=== PATIENT | male | born 1990 | race Caucasian/White ===

== ENCOUNTER 2024-05-25 09:01 | Emergency (ER) | payer SELFPAY ==
[2024-05-25 09:06] VITALS: BP 155/103; PULSE 70; TEMP 37.1; O2SAT 100; BMI 34.6
--- NOTE | 2024-05-25 09:35 | XR_ITS ---
The [address] [address] Patient Name: ESTEPHANIA FARAH MRN: [id number] date: 1990 Sex: M Assigned Patient Location: ER Current Patient Location: ER Accession/Order Number: [id number] Exam Date: 05/25/2024 09:57 Report Date: 05/25/2024 10:50 At the request of: ELYSE FULTON Procedure: XR acute abdomen series EXAMINATION: XR acute abdomen series HISTORY: Vomiting blood , epigastric pain COMPARISON: No relevant comparison available. FINDINGS: LUNGS: Trace amount of atelectasis or infiltrates within lingula. MEDIASTINUM: No abnormal widening. BOWEL GAS PATTERN: Non-obstructed. No abnormal dilation or suspicious fluid levels. FREE AIR: None. CALCIFICATIONS: None significant. BONES: No fracture or visible bone lesion. OTHER: Negative. XR/XR acute abdomen series IMPRESSION: 1. Trace amount lingular infiltrates versus atelectasis. 2. Normal bowel gas pattern. No acute abdomen or pelvis findings. Electronically authenticated by: MIGUELANGEL BATRES Date: 05/25/2024 10:50
--- NOTE | 2024-05-25 09:36 | PC.NURSE ---
pt states he lost his mother last week. Has had abd pain and intractable vomiting since tuesday. states he feels very anxious. does have a h/o stomach ulcers. denies any suicidal or homicidal thoughts. admits to smoking weed as well
--- NOTE | 2024-05-25 09:36 | ED.GENADUL1 ---
HPI HPI - General Adult General Chief complaint: Abdominal Pain Stated complaint: ANXIETY/ VOMITTING Time Seen by Provider: 05/25/24 09:35 Source: patient and family Mode of arrival: walk-in Limitations: no limitations History of Present Illness HPI narrative: This patient is here complaining of protracted vomiting since Tuesday of this week. He noticed blood in the vomitus once but for the most part there is no blood there. Prior to these episodes he had extreme constipation and started noticing blood in the stool. Somewhat of a limited historian, but he states when he was 20 years old he was admitted to a hospital in [place] and was told that he had ulcers. He does not remember if they did upper or lower colonoscopies or upper endoscopy. He was placed on some Prilosec at that time and his fianc?e started giving him that just last couple days. He denies any alcohol intake. He smokes marijuana. He has no history of hepatitis pancreatitis or colitis that he is aware of. He does not have a family doctor in the area or any other medical care options. Related Data Home Medications ?Medication ?Instructions ?Recorded ?Confirmed ondansetron HCl 4 mg tablet 4 mg PO Q8H 05/25/24 05/25/24 Allergies Allergy/AdvReac Type Severity Reaction Status Date / Time No Known Drug Allergies Allergy Verified 05/25/24 09:10 Opioid HPI Opioid Management Most Recent Opioid Data: No Data to Display Exam Narrative Exam Narrative: Awake alert moderately anxious. States that his mother is in hospice care and is very upset with that. Semination of abdomen there is no guarding rebound rigidity or peritoneal findings. Bowel sounds are normal. There is no umbilical herniation. There is no pulsatile masses. Liver is not enlarged. There is no splenomegaly. Heart and lung examination were normal. His color is good there is no scleral icterus or pallor or evidence of anemia. Constitutional Vital Signs, click to edit/add: Last Vital Signs Temp 98.7 F 05/25/24 09:06 Pulse 70 05/25/24 09:06 Resp 20 05/25/24 09:06 BP 149/91 H 05/25/24 11:16 Pulse Ox 100 05/25/24 09:06 O2 Del Method Room Air 05/25/24 09:06 Course Vital Signs Vital signs: Vital Signs Temperature 98.7 F 05/25/24 09:06 Pulse Rate 70 05/25/24 09:06 Respiratory Rate 20 05/25/24 09:06 Blood Pressure 155/103 H 05/25/24 09:06 Pulse Oximetry 100 05/25/24 09:06 Oxygen Delivery Method Room Air 05/25/24 09:06 Temperature 98.7 F 05/25/24 09:06 Pulse Rate 70 05/25/24 09:06 Respiratory Rate 20 05/25/24 09:06 Blood Pressure 149/91 H 05/25/24 11:16 Pulse Oximetry 100 05/25/24 09:06 Oxygen Delivery Method Room Air 05/25/24 09:06 Medical Decision Making MDM Narrative Medical decision making narrative: Laboratory findings show no indication of pancreatitis anemia or hepatitis. He is a relatively frequent user of marijuana and I believe is most likely diagnosis is cyclic vomiting. Kidney function tests are normal. He was given IV fluids. He did not have any response to Zofran so he was then given some Haldol. He subsequently had a little bit nervous feeling after that so of giving him Benadryl but he did not show any indication of acute tar dive motor dysfunction. We had an extensive discussion about the fact that I believe he needs to strongly consider, reconsider any marijuana use. I do not believe he is at risk for harming himself. I strongly considered a follow-up with mental health professional for any residual anxiety disorders or grief reactions. His female utilization review coordinator is supportive of these recommendations. Lab Data Labs: Lab Results 05/25/24 05/25/24 Range/Units 09:10 10:17 WBC 8.0 (4.0-11.0) 10^3/uL RBC 5.98 (4.70-6.10) 10^6/uL Hgb 15.8 (14.0-18.0) g/dL Hct 46.9 (42.0-54.0) % MCV 78.4 L (80.0-94.0) fL MCH 26.4 (25.9-34.0) pg MCHC 33.7 (29.9-35.2) g/dL RDW 14.1 (11.0-15.0) % Plt Count 323 (150-450) 10^3/uL MPV 11.4 (9.5-13.5) fL Neut % (Auto) 57.3 (43.0-75.0) % Lymph % (Auto) 33.3 (20.5-60.0) % [place] % (Auto) 6.3 (1.7-12.0) % Eos % (Auto) 2.2 (0.9-7.0) % Baso % (Auto) 0.5 (0.2-2.0) % Neut # (Auto) 4.6 (1.4-6.5) 10^3/uL Lymph # (Auto) 2.7 (1.2-3.8) 10^3/uL [place] # (Auto) 0.5 (0.3-0.8) 10^3/uL Eos # (Auto) 0.2 (0.0-0.7) 10^3/uL Baso # (Auto) 0.0 (0.0-0.1) 10^3/uL Abs Immat Gran (auto) 0.03 (0.00-0.03) 10^3/uL Imm/Tot Granulo (auto) 0.4 (0.0-0.5) % PT 10.4 (9.0-11.6) sec INR 0.98 Sodium 141 (136-145) mmol/L Potassium 3.5 (3.5-5.1) mmol/L Chloride 105 (98-107) mmol/L Carbon Dioxide 25.9 (21.0-32.0) mmol/L Anion Gap 13.6 BUN 6.0 L (7.0-18.0) mg/dL Creatinine 0.95 (0.70-1.30) mg/dL Est GFR ( Amer) >60 (>=60) Est GFR (Non-Af Amer) >60 (>=60) BUN/Creatinine Ratio 6.3 Glucose 114 H (74-106) mg/dL Calcium 9.0 (8.5-10.1) mg/dL Total Bilirubin 0.5 (0.2-1.0) mg/dL AST 20 (15-37) U/L ALT 28 (16-63) U/L Alkaline Phosphatase 83 (46-116) U/L Total Protein 7.1 (6.4-8.2) g/dL Albumin 3.6 (3.4-5.0) g/dL Globulin 3.5 g/dL Albumin/Globulin Ratio 1.0 Lipase 30.0 (16.0-77.0) U/L Discharge Plan Discharge Stand Alone Forms: Portal Instructions Chief Complaint: Abdominal Pain Clinical Impression: Cyclic vomiting syndrome Patient Disposition: Home, Self-Care Time of Disposition Decision: 11:48 Prescriptions / Home Meds: No Action ondansetron HCl 4 mg tablet 4 mg PO Q8H Print Language: Urdu Additional Instructions: Follow-up with [facility] for anxiety counseling and evaluation Referrals: Physician,Non-Staff, MD [Primary Care Provider] - 1 week
[2024-05-25] MEDS: PANTOPRAZOLE SODIUM 40 MG VIAL IV (09:44)
[2024-05-25] MEDS: 0.9 % SODIUM CHLORIDE 1,000 ML 999 ML IV (09:44)
[2024-05-25] MEDS: ONDANSETRON PF 4 MG/2 ML VIAL IV (09:58)
[2024-05-25 10:01] LABS: Basophils Percent Auto 0.5 % (0.2-2.0); Eosinophils Absolute Auto 0.2 10^3/uL (0.0-0.7); Eosinophils Percent Auto 2.2 % (0.9-7.0); Hematocrit 46.9 % (42.0-54.0); Hemoglobin 15.8 g/dL (14.0-18.0); Immature Granulocytes Abs Auto 0.03 10^3/uL (0.00-0.03); Immature Granulocytes Pct Auto 0.4 % (0.0-0.5); Lymphocytes Absolute Auto 2.7 10^3/uL (1.2-3.8); Lymphocytes Percent Auto 33.3 % (20.5-60.0); Mean Corpuscular HGB Conc 33.7 g/dL (29.9-35.2); Mean Corpuscular Hemoglobin 26.4 pg (25.9-34.0); Mean Corpuscular Volume 78.4 fL (80.0-94.0); Mean Platelet Volume 11.4 fL (9.5-13.5); Monocytes Absolute Auto 0.5 10^3/uL (0.3-0.8); Monocytes Percent Auto 6.3 % (1.7-12.0); Neutrophils Absolute Auto 4.6 10^3/uL (1.4-6.5); Neutrophils Percent Auto 57.3 % (43.0-75.0); Platelet Count 323 10^3/uL (150-450); Red Blood Count 5.98 10^6/uL (4.70-6.10); Red Cell Distribution Width 14.1 % (11.0-15.0)
[2024-05-25 10:08] LABS: INR 0.98; Prothrombin Time 10.4 sec (9.0-11.6)
[2024-05-25 10:49] LABS: Alanine Aminotransferase 28 U/L (16-63); Albumin Level 3.6 g/dL (3.4-5.0); Alkaline Phosphatase 83 U/L (46-116); Anion Gap 13.6; Aspartate Amino Transferase 20 U/L (15-37); BUN Creatinine Ratio 6.3; Bilirubin Total 0.5 mg/dL (0.2-1.0); Carbon Dioxide 25.9 mmol/L (21.0-32.0); Chloride 105 mmol/L (98-107); Estimated GFR (African America >60 (>=60); Estimated GFR (Non-African Ame >60 (>=60); Globulin 3.5 g/dL; Glucose 114 mg/dL (74-106); Potassium 3.5 mmol/L (3.5-5.1); Sodium 141 mmol/L (136-145); Total Protein 7.1 g/dL (6.4-8.2)
[2024-05-25] MEDS: HALOPERIDOL LACTATE 5 MG/ML VIAL IV (11:04)
[2024-05-25 11:16] VITALS: BP 149/91
[2024-05-25] MEDS: DIPHENHYDRAMINE HCL 50 MG/ML VIAL 25 MG IV (11:54)
== END 2024-05-25 12:05 | disposition home or self-care (01) ==
PROVIDERS: Emergency Provider Emergency Medicine Emergency Medical Services
DX: R11.15 Cyclical vomiting syndrome unrelated to migraine (principal); F12.90 Cannabis use, unspecified, uncomplicated
CPT/HCPCS: 36415; 74022; 80053; 83690; 85025; 85610; 96361; 96374; 96375; 99284; J1200; J1630; J2405